=== PATIENT | female | born 1980 | race Caucasian/White ===

== ENCOUNTER 2023-06-25 10:05 | Outpatient (CLI) | payer BC, SELFPAY ==
--- NOTE | 2023-06-25 10:52 | ECG_ITS ---
Measurements Intervals [place] Rate: 73 P: 28 AR: 140 QRS: 30 QRSD: 93 T: 21 QT: 403 QTc: 429 Interpretive Statements SINUS RHYTHM LOW QRS VOLTAGE BORDERLINE ECG SEE SCANNED COPY FOR SIGNATURE MTDD
[2023-06-25 11:33] LABS: Alanine Aminotransferase 17 U/L (6-35); Albumin Level 4.4 g/dL (3.5-5.1); Alkaline Phosphatase 93 U/L (38-126); Anion Gap 6 mmol/L (4-12); Aspartate Amino Transferase 19 U/L (14-36); Bilirubin,Total 0.7 mg/dL (0.2-1.3); Blood Urea Nitrogen 16 mg/dL (7-17); Calcium 9.5 mg/dL (8.4-10.2); Carbon Dioxide 27 mmol/L (22-30); Chloride 105 mmol/L (98-107); Estimated Glomerular Filt Rate > 60; Glucose 91 mg/dL (65-110); Sodium 138 mmol/L (137-145)
== END 2023-06-25 10:06 | disposition home or self-care (01) ==
LOC: ANHSURGERY 10:10
PROVIDERS: PCP Nurse Practitioner Family; Visit Provider Obstetrics & Gynecology
DX: I10 Essential (primary) hypertension (principal); R10.2 Pelvic and perineal pain
CPT/HCPCS: 36415; 80053; 86850; 86900; 86901; 93005

== ENCOUNTER 2023-06-27 01:40 | Day surgery (SDC) | payer BC, SELFPAY ==
--- NOTE | 2023-06-13 16:28 | PC.NURSE ---
Report to the Outpatient Waiting Room, entrance under the green pavilion located off [facility], at time 0830 on date 06/27/23. Planned Procedure Time: 1030. Time changes happen often and if your time is changed the preop area will call you the afternoon before. - You and your visitor will be asked to self-screen and do not enter if you have any COVID symptoms. - A mask is optional within the hospital at this time. Patients may have clear liquids (water, carbonated beverages, clear teas, apple juice) until 3 hours prior to surgery with a maximum of 20 ounces. 0730 - No food from midnight until time of surgery - Infants may have breast milk until 4 hours before surgery, formula 6 hours prior to surgery. - Children will be allowed to drink immediately following surgery. If applicable, please bring a bottle or sippy cup to assist with drinking. Juice, water, soda, and popsicles are readily available. For infants on formula, please bring formula the day of surgery. Pacifiers are allowed. Take the following medications with a SIP of water the morning of surgery: FLUOXETINE, HYDROXYZINE, METOPROLOL DO NOT STOP ANY OF YOUR OTHER PRESCRIPTION MEDICATIONS PRIOR TO SURGERY ?EXCEPT THE FOLLOWING Medications to discontinue per physician NONE Date to take last dose Please no make-up, nail [place], hairspray, perfume, deodorant, or body powder the day of surgery. No jewelry (including any body piercings) or valuables the day of surgery, leave them at home. Please take a shower or bath the night before, or the morning of, surgery with an antibacterial soap. Wear comfortable, loose fitting clothing. Children are encouraged to wear pajamas. - Jewelry must be removed prior to entering the operating room. Rings and piercings that are not removed may be cut off. - The hospital will not accept responsibility for valuables. - Please leave all valuables, including medications, at home the day of surgery. If you are going home after surgery, a licensed log truck driver must drive you home. - NO public transportation without another adult if you receive anesthesia. - We recommend that an adult stay with you for 24 hours following discharge. - We also recommend that you do not drive, make important decision, drink alcoholic beverages, or take any drugs that were not prescribed by your health care provider for at least 24 hours after your discharge time. For Pediatric surgeries, we recommend two adults accompany the child home. Follow any additional instructions given to you from your surgeon. If you or anyone in your household have experienced Covid symptoms in the past week, please notify your surgeon or the nurse liaison at the phone number below for possible testing. Telephone instructions given to PATIENT- DARLENE VENTRUA and asked if any additional questions and then verbalized understanding. Patient advised to call surgeon office or pre surgery nurse liaison [phone] if any additional questions.
[2023-06-13 16:41] VITALS: BMI 33.0
[2023-06-27] VITALS (12 sets, daily range): BP systolic 95–139; BP diastolic 50–91; PULSE 79–114; RESP 10–18; TEMP 36.2–36.7; O2SAT 92–100
[2023-06-27] MEDS: ACETAMINOPHEN 500 MG TABLET 1000 MG PO (07:19)
--- NOTE | 2023-06-27 07:48 | WPDANESEPPF ---
Anes - Initial Pre Proc Eval Procedure: Operation Date: 06/27/23 09:00 Proposed Procedures p Total Laparoscopic Hysterectomy with Bilateral Salpingectomy - Ana Alvarez MD Date/Time: 06/27/23 07:48 Surgeon: Ana Alvarez MD Pre Op Diagnosis: pelvic pain Patient Data Age: 43 Gender: F Height: 1.65 m Weight: 89.6 kg Last Vital Signs Temp 36.5 C 06/27/23 07:27 Pulse 79 06/27/23 07:27 Resp 16 06/27/23 07:27 BP 127/84 06/27/23 07:27 Pulse Ox 100 06/27/23 07:27 O2 Del Method Room Air 06/27/23 07:27 Allergies Allergy/AdvReac Type Severity Reaction Status Date / Time latex Allergy Hives Verified 06/27/23 07:15 tramadol AdvReac Nausea and Verified 06/27/23 07:15 Vomiting Home Medications Medication Instructions Recorded Confirmed Type fluoxetine 20 mg capsule 20 mg PO DAILY 06/13/23 06/27/23 History hydroxyzine HCl 50 mg tablet 50 mg PO TID PRN Anxiety 06/13/23 06/27/23 History losartan 100 mg tablet 100 mg PO HS 06/13/23 06/27/23 History metoprolol succinate 25 mg 12.5 mg PO DAILY 06/13/23 06/27/23 History tablet,extended release 24 hr Patient hx anesthesia problems: none Family hx anesthesia problems: none Results Review: All pre-operative results and documents have been reviewed as part of the pre-operative evaluation. [facility] Past Medical History Medical History (Updated 06/27/23 @ 07:49 by Iain Barrow MD) HTN (hypertension) Obesity SLE (systemic lupus erythematosus) Surgical History Surgical History (Updated 06/27/23 @ 07:52 by Iain Barrow MD) H/O cervical spine surgery History of section Hx of tonsillectomy Social History Social History Smoking packs per day: 0.5 Smoking cigarettes per day: 10.0 Years smoked: 24 Smoking pack-years: 12.00 Smoking status: Current every day smoker Tobacco type: cigarettes Alcohol use details: once every 3 months Substance use: current Substance use type: marijuana Other substance usage details: daily Spiritual care concerns: No Anes - Eval Final PreProcedure Day of Procedure 06/27/23 07:48 Patient weight: obese Heart: regular rate and rhythm Lungs: clear to auscultation Airway: Mallampati scale class II Neurological: alert and oriented Last oral intake: >/= 8 hours ASA classification: III Emergent: no Anesthetic plan: proceed Anesthesia type and monitoring: general ETT and standard monitoring Results Review: All pre-operative results and documents have been reviewed as part of the pre-operative evaluation. Informed Consent: The patient's anesthetic plan and its attendant risks and benefits were discussed with the patient/family/POA. Questions were solicited and answers provided to the satisfaction of the patient/family/POA.
[2023-06-27] MEDS: LACTATED RINGERS 1,000 ML 30 ML IV CONT ×2 (07:51→12:15)
[2023-06-27] MEDS: SCOPOLAMINE 1 MG PATCH 1 PATCH TRANSDERM (07:55)
--- NOTE | 2023-06-27 08:23 | WPDHPUPDATE1 ---
History and Physical Update Update Date/Time: 06/27/23 08:23 History and Physical has been reviewed, including an updated exam of the patient. There are NO changes in the patient's condition. Risks, benefits, and alternatives have been discussed and questions answered. Patient agrees to proceed with procedure.
[2023-06-27] MEDS: KETOROLAC 15 MG/ML VIAL (*BKC) IV PUSH (08:37)
[2023-06-27] MEDS: ceFAZolin SODIUM 1 GM VIAL 3 GM IRRIGATION (08:41)
[2023-06-27] MEDS: ceFAZolin 2 GM/D5W 50 ML 2 GM/50 ML BAG IVPB (08:41)
--- NOTE | 2023-06-27 10:58 | SUR.OPER ---
methylene blue injected IV per anesthesia at approx. 1103
--- NOTE | 2023-06-27 12:16 | SUR.OPER ---
new mustafa cath reinserted after cystoscopy procedure
[2023-06-27] MEDS: fentaNYL CITRATE INJ (*CRX) 100 MCG/2 ML VIAL 25 MCG IV PUSH ×8 (12:34→13:08)
--- NOTE | 2023-06-27 12:36 | W.PM.PROC2 ---
Procedure Note - Detailed Date of Procedure 06/27/23 Pre-op Diagnosis pelvic pain Post-op Diagnosis Same Procedure Performed Total laparoscopic hysterectomy , bilateral salpingectomy, adhesiolysis-2 hours Surgeon Ana Alvarez MD Anesthesia General Indications pelvic pain Findings Uterus Fundus was imbedded in the anterior abdominal wall 1 cm. normal-appearing ovaries and fallopian tubes. Description of Procedure This patient was taken to the operating room. She was prepped and draped in the dorsal lithotomy position after induction of general anesthesia. The uterine manipulator and Pete cup were placed. This was done with a speculum and tenaculum. The speculum was placed. The cervix was grasped with a tenaculum. The stay sutures were placed at 3 and 9:00 a.m.. The stay sutures of 0 Vicryl were brought through the appropriately sized Pete cup. The tip of the JUAN ALBERTO manipulator was placed in the intrauterine cavity. The cup was slid into place around the cervix and into the fornices. It was locked into place. The sutures were then wrapped around the handle and tied under tension. A 5 mm skin incision was made in the left upper quadrant the abdomen. A 5 mm trocar was inserted into the intrauterine cavity under direct visualization of the scope. Pneumoperitoneum was achieved. A left lower quadrant 11 mm incision was made with scalpel. An 11 mm trocar was inserted into the anterior abdominal cavity under direct visualization the scope. A 5 mm infraumbilical incision was made with a scalpel and a 5 mm trocar was inserted the intra-abdominal cavity under direct visualization of the scope. 2 hours of adhesiolysis was performed between the uterus, cervix and the anterior abdominal wall. This was done with sharp and blunt dissection and cautery. Bilateral ureteral lysis was performed. This was done from the pelvic brim down to the uterine artery. This was done with careful dissection using sharp and blunt dissection. The fallopian tubes were removed bilaterally. The mesosalpinx around the fallopian tubes were cauterized transected with LigaSure cautery. This was done in a bilateral fashion from the ovary to the uterine cornua. The fallopian tube was transected at the uterine cornu and amputated bilaterally. The tube was taken out the left lower quadrant trocar site. In a stepwise fashion along the lateral aspects of the uterus the round ligament and broad ligaments were cauterized transected down to the level of the uterine arteries. A bladder flap was created in the bladder was moved distally to the end of the cervix and over the Pete cup. The bilateral uterine arteries were cauterized and transected. Colpotomy was then performed. In a circumferential fashion the vagina was transected using unipolar cautery. The incision was made down on the Pete cup. when the colpotomy was completed, the uterus and cervix were taken out through the vagina. A pneumo occluder was placed in the vagina. The vaginal cuff was closed with a 0 V lock suture in a running fashion. The pelvis was irrigated with copious amounts antibiotic irrigation. The ureters were again examined and found to be intact and flowing freely under the uterine arteries into the bladder. The bladder was intact. It was examined directly. Cystotomy was closed. This was done with imbricating layers of 3-0 V lock suture. Two layers were used. The entire defect which was about 2 cm in length was surrounded by imbricating suture x2. Cystoscopy was performed after administration of methylene blue. The cystoscope was inserted. Bladder was distended with fluid. Cystotomy or repair was watertight. The ureteric meatus was observed bilaterally. Blue fluid was seen to egress bilaterally. The bladder was drained and the cystoscope was withdrawn. The vagina was irrigated with Betadine solution after removal of the Pneumo occluder. The patient was taken to recovery room. She was sta
[2023-06-27] MEDS: HYDROmorphone HCL INJ (*CRX) 1 MG/ML SYR 0.5 MG IV PUSH ×4 (13:30→13:45)
--- NOTE | 2023-06-27 14:21 | ADMGEN ---
1415-This patient, Olive Gusman, was admitted to OB 2nd Floor Room 289-00. Patient/family oriented to hospital policies and general routines including ID bracelet, bed and alarms, visiting hours, pain management, procedures, bathroom and other care routines, personal items, smoking policy, room service/diet, and visiting hours. Information on how to activate the Rapid Response Team has been discussed. Patient/Family are encouraged to report perceived risks to care and to ask questions if they do not understand what they are told or what they should do.
[2023-06-27] MEDS: DEXTROSE 5%/0.45% SOD CHL 1,000 ML 125 ML IV CONT ×2 (14:34→22:24)
[2023-06-27] MEDS: KETOROLAC 30 MG/ML VIAL (*BKC) IV PUSH ×2 (14:46→20:25)
[2023-06-27] MEDS: SIMETHICONE 80 MG TAB.CHEW PO (15:28)
[2023-06-27] MEDS: HYDROcodone/acetaminophen (*CRX) 10-325 MG TABLET 1 TAB PO ×2 (15:28→18:09)
[2023-06-27] MEDS: ONDANSETRON INJ 4 MG/2 ML VIAL IV PUSH (18:40)
[2023-06-27] MEDS: hydrOXYzine HCL 25 MG TABLET 50 MG PO (21:15)
[2023-06-27] MEDS: LOSARTAN POTASSIUM 100 MG TABLET PO (21:15)
[2023-06-28] MEDS: ONDANSETRON INJ 4 MG/2 ML VIAL IV PUSH (00:32)
[2023-06-28] MEDS: HYDROcodone/acetaminophen (*CRX) 10-325 MG TABLET 1 TAB PO (00:43)
[2023-06-28 00:46] VITALS: BP 139/98; PULSE 109; RESP 20; TEMP 36.7; O2SAT 99
[2023-06-28] MEDS: KETOROLAC 30 MG/ML VIAL (*BKC) IV PUSH (03:20)
[2023-06-28 04:12] VITALS: BP 137/86; PULSE 106; RESP 20; TEMP 36.6; O2SAT 99
[2023-06-28 07:18] VITALS: PULSE 75
[2023-06-28] MEDS: FLUoxetine HCL 20 MG CAPSULE PO (07:18)
[2023-06-28] MEDS: SIMETHICONE 80 MG TAB.CHEW PO (07:18)
[2023-06-28] MEDS: METOPROLOL SUCCINATE EXT REL 12.5 MG TABCR PO (07:18)
[2023-06-28 07:22] VITALS: BP 126/76; PULSE 74; RESP 18; TEMP 36.6; O2SAT 97
[2023-06-28] MEDS: HYDROcodone/acetaminophen (*CRX) 5-325 MG TABLET 1 TAB PO (07:35)
--- NOTE | 2023-06-28 07:40 | PM.GYNPNOP ---
PUNCH FINISHER - A/P Postoperative Procedures: Procedures Operation Date: 06/27/23 09:00 Actual Procedure Side Surgeon p Total Laparoscopic Hysterectomy with Bilateral Salpingectomy and extensive adhesiolysis , cystoscopy with bladder repair Bilateral Ana Alvarez MD Postoperative day: 1 Postoperative status: doing well Postoperative plan: see orders Time Spent With Patient Time: Total time spent is greater than 50% in coordination of care (as documented) at patient's floor/unit and/or counseling patient: Time with patient: less than 15 minutes PUNCH FINISHER- PN:Subj Post-Op Subjective Date/time seen: 06/28/23 07:40 Subjective: patient reports feeling better, patient has no complaints and pain is well controlled Exam Const: General: healthy appearing, comfortable and no acute distress Resp: Auscultation: clear to auscultation bilaterally, no rales, no rhonchi and no wheezes Cardio: Rate: regular rate Heart sounds: no click, no murmurs and no rubs GI: Inspection: non-distended Auscultation: normal bowel sounds Extrem: General: normal to inspection, no pedal edema and no calf tenderness PUNCH FINISHER - PN: Obj Data Vital Signs Vital Signs: Vital Signs - 24 hr 06/27/23 12:15 06/27/23 12:30 06/27/23 12:45 Temperature 97.1 F L Pulse Rate 114 H 92 97 Respiratory Rate 16 18 10 L Blood Pressure 133/88 113/70 111/66 Pulse Oximetry 98 98 92 Oxygen Delivery Simple Face Mask Room Air Room Air Oxygen Flow Rate 8 06/27/23 13:00 06/27/23 13:15 06/27/23 13:30 Temperature Pulse Rate 98 99 95 Respiratory Rate 11 L 12 10 L Blood Pressure 103/70 107/61 102/63 Pulse Oximetry 92 93 96 Oxygen Delivery Room Air Room Air Room Air Oxygen Flow Rate 06/27/23 13:45 06/27/23 14:00 06/27/23 14:20 Temperature 97.7 F Pulse Rate 98 98 97 Respiratory Rate 12 14 16 Blood Pressure 101/66 95/50 L 135/76 Pulse Oximetry 93 93 95 Oxygen Delivery Room Air Room Air Oxygen Flow Rate 06/27/23 14:30 06/27/23 18:43 06/28/23 00:46 Temperature 98.1 F 98.1 F Pulse Rate 97 107 H 109 H Respiratory Rate 16 18 20 Blood Pressure 139/91 H 139/98 H Pulse Oximetry 95 99 99 Oxygen Delivery Room Air Oxygen Flow Rate 06/28/23 04:12 06/28/23 07:18 06/28/23 07:22 Temperature 97.8 F 98 F Pulse Rate 106 H 75 74 Respiratory Rate 20 18 Blood Pressure 137/86 126/76 Pulse Oximetry 99 97 Oxygen Delivery Oxygen Flow Rate 06/28/23 07:22 Temperature Pulse Rate Respiratory Rate Blood Pressure Pulse Oximetry Oxygen Delivery Room Air Oxygen Flow Rate Intake/Output Intake/Output: Intake & Output 06/25/23 06/26/23 06/27/23 06/28/23 23:59 23:59 23:59 23:59 Intake Total 2079.2 800 Output Total 830 1500 Balance 1249.2 -700 Meds/Results Medications: Active Medications Generic Name Dose Route Start Last Admin Trade Name Freq PRN Reason Stop Dose Admin Hydrocodone Bitart/Acetaminophen 1 tab 06/27/23 14:08 06/28/23 07:35 Hydrocodone/Acetaminophen (*Crx) 5-325 Mg Tablet PO 1 tab Q3H PRN Administration Pain Rated 5 or Less Hydrocodone Bitart/Acetaminophen 1 tab 06/27/23 14:08 06/28/23 00:43 Hydrocodone/Acetaminophen (*Crx) 10-325 Mg Tablet PO 1 tab Q3H PRN Administration Pain Rated 6 or Greater Fluoxetine HCl 20 mg 06/28/23 09:00 06/28/23 07:18 Fluoxetine Hcl 20 Mg Capsule PO 20 mg DAILY GILDA Administration Hydroxyzine HCl 50 mg 06/27/23 14:08 06/27/23 21:15 Hydroxyzine Hcl 25 Mg Tablet PO 50 mg TID PRN Administration Anxiety Dextrose/Sodium Chloride 1,000 mls @ 125 mls/hr 06/27/23 14:08 06/27/23 22:24 Dextrose 5% Sodium Chloride 0.45% IV CONT 125 mls/hr .Q8H GLIDA Administration Ibuprofen 600 mg 06/27/23 14:08 Ibuprofen 600 Mg Tablet PO Q6H PRN Cramping Ketorolac Tromethamine 30 mg 06/27/23 14:08 06/28/23 03:20 Ketorolac 30 Mg/Ml Vial (*Bkc) IV PUSH 07/02/23 14:07 30 mg Q6H PRN Administration Pain R
--- NOTE | 2023-06-28 08:02 | WPDANESPN ---
Anes - Prog Note Post-Op Date/Time: 06/28/23 08:02 Cardiovascular status: normal Respiratory status: normal Airway patency: baseline Mental status: baseline Post-Op hydration status: normal Vital Signs: Last Vital Signs Temp 36.6 C 06/28/23 07:22 Pulse 74 06/28/23 07:22 Resp 18 06/28/23 07:22 BP 126/76 06/28/23 07:22 Pulse Ox 97 06/28/23 07:22 O2 Del Method Room Air 06/28/23 07:22 O2 Flow Rate 8 06/27/23 12:15 Pain Score (VAS): 04/28 I/O: Intake & Output 06/27/23 06/28/23 06/28/23 23:59 07:59 15:59 Intake Total 979.2 800 Output Total 2800 Balance 979.2 -2000 Post-procedural complaints: nausea Patient Feedback: Patient satisfied with anesthetic care.
== END 2023-06-28 08:42 | disposition home or self-care (01) ==
LOC: ANHSURGERY 07:51 → ANHOB2 14:10
PROVIDERS: PCP Nurse Practitioner Family; Visit Provider Obstetrics & Gynecology
PROC: 0UT9FZZ Resection of Uterus, Via Natural or Artificial Opening With Percutaneous Endoscopic Assistance (ICD-10-PCS; CPT 58571; principal; 2023-06-27 09:00)
DX: N73.6 Female pelvic peritoneal adhesions (postinfective) (principal); N72 Inflammatory disease of cervix uteri; N87.9 Dysplasia of cervix uteri, unspecified; N80.03 Adenomyosis of the uterus; D25.1 Intramural leiomyoma of uterus; D25.2 Subserosal leiomyoma of uterus; N83.8 Other noninflammatory disorders of ovary, fallopian tube and broad ligament; I10 Essential (primary) hypertension; M32.9 Systemic lupus erythematosus, unspecified; E66.9 Obesity, unspecified; Z68.32 Body mass index [BMI] 32.0-32.9, adult; F17.210 Nicotine dependence, cigarettes, uncomplicated; F12.90 Cannabis use, unspecified, uncomplicated
CPT/HCPCS: 58571; 88307; 99199; A9270; J0690; J1100; J1170; J1885; J2250; J2405; J2704; J3010; J7030; J7120; Q9968

== ENCOUNTER 2023-06-29 04:28 | Emergency (ER) | payer BC, SELFPAY ==
--- NOTE | ~2023-06-29 | CT_ITS ---
EXAMINATION: CT abdomen pelvis w con DATE: 06/29/2023 05:54 INDICATION: Postoperative pelvic pain. TECHNIQUE: Computed tomography (CT) of the abdomen and pelvis was performed with 100 mL Omnipaque 350 intravenous contrast. Automated exposure control and iterative reconstruction technique were employe d. The dose-length product was 1141.01 mGy-cm. COMPARISON: None. FINDINGS: The visualized portions of the lung bases demonstrate mild atelectasis. There is a trace le ft pleural effusion. The heart size is normal. No pericardial effusion. There is a 5 mm cyst in the l iver. The gallbladder, spleen, pancreas, and adrenal glands are normal. There are cysts in the kidney s measuring up to 7 mm in the right. There is a Ibarra catheter in expected position. There are no dil ated loops of bowel. The appendix is normal. There are no pathologically enlarged lymph nodes. There is trace pelvic ascites. There is fat stranding in the pelvis, consistent with inflammation versus ed leeann. There is widespread gas in the body wall. There is subcutaneous fat stranding in left abdomen, c onsistent with inflammation versus edema. There is moderate thoracic spondylosis and mild lumbar spon dylosis. IMPRESSION: 1. Widespread gas in the body wall, consistent with recent surgery. 2. Fat stranding in the pelvis and the left abdominal subcutaneous fat, consistent with inflammation versus edema. Reviewed, dictated and finalized at location A. IMPRESSION: 1. Widespread gas in the body wall, consistent with recent surgery. 2. Fat stranding in the pelvis and the left abdominal subcutaneous fat, consist ent with inflammation versus edema.
[2023-06-29 04:32] VITALS: BP 167/92; PULSE 91; RESP 20; TEMP 36.6; O2SAT 100
--- NOTE | 2023-06-29 04:40 | PC.NURSE ---
mustafa catheter noted to have mechanical obstruction, mustafa was repositioned and urine became patent w/ outflow 600 MLS collected in mustafa cath
--- NOTE | 2023-06-29 04:50 | ED.GENADULT ---
HPI - General Adult General Chief complaint: Urogenital-Female Stated complaint: urinary retention Time Seen by Provider: 06/29/23 04:48 History of Present Illness HPI narrative: This is a 43-year-old female who is POD 2 from a total laparoscopic hysterectomy with bilateral salpingectomy and adhesiolysis. Patient noticed that her Ibarra stopped draining last night. Since then she has been having worsening lower abdominal pain and fullness. No fever chills nausea vomiting or diarrhea. Patient has been taking oxycodone for pain. Related Data Home Medications Medication Instructions Recorded Confirmed fluoxetine 20 mg capsule 20 mg PO DAILY 06/13/23 06/27/23 hydroxyzine HCl 50 mg tablet 50 mg PO TID PRN Anxiety 06/13/23 06/27/23 losartan 100 mg tablet 100 mg PO HS 06/13/23 06/27/23 metoprolol succinate 25 mg 12.5 mg PO DAILY 06/13/23 06/27/23 tablet,extended release 24 hr Allergies Allergy/AdvReac Type Severity Reaction Status Date / Time latex Allergy Hives Verified 06/29/23 04:37 tramadol AdvReac Nausea and Verified 06/29/23 04:37 Vomiting PMFSH Past Medical History Medical History (Updated 06/29/23 @ 06:35 by Kvng Hanley MD) HTN (hypertension) Obesity SLE (systemic lupus erythematosus) Surgical History Surgical History (Updated 06/27/23 @ 07:52 by Iain Barrow MD) H/O cervical spine surgery History of section Hx of tonsillectomy Social History Social History Smoking packs per day: 0.5 Smoking cigarettes per day: 10.0 Years smoked: 24 Smoking pack-years: 12.00 Smoking status: Current every day smoker Tobacco type: cigarettes Alcohol use details: once every 3 months Substance use: current Substance use type: marijuana Other substance usage details: daily Spiritual care concerns: No Exam Narrative: APPEARANCE: No apparent distress. Head: atraumatic. EYES: EOMI, NOSE: Atraumatic NECK: Trachea midline RESPIRATORY: No increased rate of breathing CARDIOVASCULAR: RRR, ABDOMINAL: abdomen is diffusely tender without significant guarding or rebound. multiple surgical incisions sites with some mild bruising but no cellulitic changes MUSCULOSKELETAl: No obvious deformities NEURO: Alert. Moving 4/4 extremities SKIN:: Warm, dry. Normal color PSYCHIATRIC: Normal affect Course Vital Signs Vital signs: Vital Signs Temperature 97.8 F 06/29/23 04:32 Pulse Rate 91 06/29/23 04:32 Respiratory Rate 20 06/29/23 04:32 Blood Pressure 167/92 H 06/29/23 04:32 Pulse Oximetry 100 06/29/23 04:32 Oxygen Delivery Room Air 06/29/23 04:32 Temperature 97.8 F 06/29/23 04:32 Pulse Rate 91 06/29/23 04:32 Respiratory Rate 20 06/29/23 04:32 Blood Pressure 167/92 H 06/29/23 04:32 Pulse Oximetry 100 06/29/23 04:32 Oxygen Delivery Room Air 06/29/23 04:32 Medical Decision Making MDM Narrative Medical decision making narrative: -Course: 43-year-old female presented pod 2 with increased abdominal pain and a Ibarra that is stop draining. On exam the patient's Ibarra had been kinked morning was on came started to drain urine stained with methylene blue. Review of the operative note shows that there was a bladder repair performed during the surgery. The case was discussed with Dr Alvarez. The patient's urinary retention may have damaged her bladder repair and a CT abdomen pelvis was ordered to evaluate for possible urine leak. CT showed expected surgical changes. Some trace ascites in pelvis. patient was given fluid resuscitation/pain medications and is now resting more comfortably. Patient has some tenderness to her abdomen although it is consistent with postop tenderness. I re-contacted Dr. Alvarez. I updated him on the patients condition and she will be discharged to follow-up with him outpatient. Additionally she will be given return precautions for worsening abdominal pa
[2023-06-29] MEDS: HYDROmorphone HCL INJ (*CRX) 1 MG/ML SYR IM (05:06)
[2023-06-29] MEDS: SODIUM CHLORIDE 0.9% IV 1,000 ML 999 ML IV CONT (05:13)
[2023-06-29] MEDS: KETOROLAC 15 MG/ML VIAL (*BKC) IV PUSH (05:13)
[2023-06-29 05:18] LABS: Basophils Percent Auto 0.1 % (0.2-1.2); Eosinophils Absolute Auto 0.1 K/mm3 (0-0.3); Eosinophils Percent Auto 1.7 % (0-4.4); Hemoglobin 12.1 g/dL (12.0-15.0); Immature Granulocyte Absolute 0.03 K/mm3 (0.00-0.031); Immature Granulocyte Percent A 0.4 % (0-0.5); Lymphocytes Absolute Auto 1.53 K/mm3 (0.9-3.2); Lymphocytes Percent Auto 21.1 % (18.3-44.2); Mean Corpuscular HGB Conc 32.7 g/dl (32-36); Mean Corpuscular Hemoglobin 28.9 pg (26-34); Mean Corpuscular Volume 88.5 fl (80-100); Mean Platelet Volume 9.3 fl (7.4-10.4); Monocytes Absolute Auto 0.4 K/mm3 (0.1-0.6); Monocytes Percent Auto 5.1 % (2.6-8.5); Neutrophils Absolute Auto 5.2 K/mm3 (1.3-6.7); Neutrophils Percent Auto 71.6 % (45.5-73.1); Platelet Count Result 229 k/mm3 (150-375); Red Blood Count 4.18 M/mm3 (4.2-5.4); Red Cell Distribution Width 12.8 % (11.5-14.5); White Blood Count 7.3 K/mm3 (4.5-10.0)
[2023-06-29 05:20] LABS: Bacteria Urine None Seen /hpf; Non Pathogenic Casts 0-2; RBC Urine 21-50 /hpf (0-2); Squamous Epithelial Cell Urine None Seen /hpf (Few); WBC Urine 0-5 /hpf (0-3)
[2023-06-29 05:22] LABS: Alanine Aminotransferase 16 U/L (6-35); Albumin Level 3.9 g/dL (3.5-5.1); Alkaline Phosphatase 81 U/L (38-126); Anion Gap 8 mmol/L (4-12); Aspartate Amino Transferase 23 U/L (14-36); Bilirubin,Total 0.5 mg/dL (0.2-1.3); Blood Urea Nitrogen 15 mg/dL (7-17); Calcium 8.9 mg/dL (8.4-10.2); Carbon Dioxide 25 mmol/L (22-30); Chloride 107 mmol/L (98-107); Estimated CRCL calculation 99 ml/min; Estimated Glomerular Filt Rate > 60; Glucose 99 mg/dL (65-110); Potassium 3.4 mmol/L (3.4-5.0); Sodium 140 mmol/L (137-145)
[2023-06-29 05:24] LABS: Appearance Urine Clear (Clear); Bilirubin Urine Negative (Negative); Blood Urine 2+ (Negative); Glucose Urine UA Negative (Negative); Ketones Urine Negative (Negative); Leukocyte Esterase Ur Negative LEU/UL (Negative); Nitrate Urine Negative (Negative); Protein Urine 1+ mg/dL (Negative); Specific Grav Ur 1.019 (1.001-1.035); Urobilinogen Urine 0.2 mg/dL (<2.0); pH Urine 6.5 (5.0-9.0)
[2023-06-29 05:25] LABS: Add Urine Microscopic? YES
[2023-06-29 05:26] VITALS: BP 139/87; PULSE 75; RESP 15; O2SAT 96
[2023-06-29 06:51] VITALS: BP 132/74; PULSE 84; RESP 16; O2SAT 98
== END 2023-06-29 06:52 | disposition home or self-care (01) ==
PROVIDERS: Emergency Provider Emergency Medicine; PCP Nurse Practitioner Family
DX: G89.18 Other acute postprocedural pain (principal); T83.091A Other mechanical complication of indwelling urethral catheter, initial encounter; Z79.891 Long term (current) use of opiate analgesic; I10 Essential (primary) hypertension; E66.9 Obesity, unspecified; Z68.34 Body mass index [BMI] 34.0-34.9, adult; M32.9 Systemic lupus erythematosus, unspecified; F17.210 Nicotine dependence, cigarettes, uncomplicated
CPT/HCPCS: 36415; 51702; 74177; 80053; 81001; 85025; 96361; 96367; 96372; 96374; 99284; J1170; J1885; J7030; Q9967

== ENCOUNTER 2023-07-02 17:12 | Outpatient (CLI) | payer BC, SELFPAY ==
--- NOTE | ~2023-07-02 | XR_ITS ---
EXAMINATION: CYSTOGRAM DATE: 07/02/2023 17:40 INDICATION: Assess for repaired bladder injury post recent hysterectomy. TECHNIQUE: Initial habitat conservation planner radiograph of the pelvis was performed. There was retrograde administration of Omnipaque 350 mixed with saline contrast into patient's existing Ibarra catheter. Fluoroscopic francis ges of the pelvis were obtained in AP and left and right oblique projections. A post-void image was a lso performed. Fluoroscopy exposure time was 0.6 minutes. A total of 17 fluoroscopic images and 2 ove rhead radiographs were obtained. FINDINGS: Contrast fills the bladder which demonstrates a normal contour was smooth mucosal surface and without evident extraluminal contrast extravasation to suggest residual bladder leak. IMPRESSION: 1. Normal cystogram with no bladder leak. Reviewed, dictated and finalized at location A.
== END 2023-07-02 17:13 | disposition home or self-care (01) ==
LOC: ANHIMG 17:13
PROVIDERS: PCP Nurse Practitioner Family; Visit Provider Obstetrics & Gynecology
DX: Z48.89 Encounter for other specified surgical aftercare (principal)
CPT/HCPCS: 51600; 74430; Q9967

== ENCOUNTER 2023-07-21 13:19 | Emergency (ER) | payer BC, SELFPAY ==
--- NOTE | ~2023-07-21 | XR_ITS ---
EXAMINATION: XR chest 2V Exam Date/Time: 07/21/2023 14:52 CDT HISTORY: back pain, SCAPULAR REGION, into right arm Comparison: None. RESULT: Lines, tubes, and devices: ACDF hardware. Lungs and pleura: Clear. Cardiomediastinal silhouette: Unremarkable. Other: No acute osseous or upper abdominal finding. IMPRESSION: No acute cardiopulmonary process. Reviewed, dictated and finalized at location K.
[2023-07-21 13:21] VITALS: BP 142/100; PULSE 90; RESP 19; TEMP 36.4; O2SAT 100
--- NOTE | 2023-07-21 14:40 | ED.EXTPRO ---
HPI - Extremity Problem General Chief complaint: Extremity Problem,Nontraumatic Stated complaint: shoulder pain Time Seen by Provider: 07/21/23 14:07 History of Present Illness HPI Narrative: 43-year-old female present to the emergency department for evaluation of upper back pain that radiates into her right shoulder. Patient states pain started few days ago. Patient does have prior history of herniated disc and states this feels similar. Patient denies any specific incident of fall or injury. Related Data Home Medications Medication Instructions Recorded Confirmed fluoxetine 20 mg capsule 20 mg PO DAILY 06/13/23 06/27/23 hydroxyzine HCl 50 mg tablet 50 mg PO TID PRN Anxiety 06/13/23 06/27/23 losartan 100 mg tablet 100 mg PO HS 06/13/23 06/27/23 metoprolol succinate 25 mg 12.5 mg PO DAILY 06/13/23 06/27/23 tablet,extended release 24 hr Allergies Allergy/AdvReac Type Severity Reaction Status Date / Time latex Allergy Hives Verified 07/21/23 14:21 tramadol AdvReac Nausea and Verified 07/21/23 14:21 Vomiting Review of Systems Review of Systems: All systems reviewed & are unremarkable except as noted in HPI and below PMFSH Past Medical History Medical History (Updated 07/21/23 @ 16:09 by Filiberto Segovia MD) HTN (hypertension) Obesity SLE (systemic lupus erythematosus) Surgical History Surgical History (Updated 06/27/23 @ 07:52 by Iain Barrow MD) H/O cervical spine surgery History of section Hx of tonsillectomy Social History Social History Smoking packs per day: 0.5 Smoking cigarettes per day: 10.0 Years smoked: 24 Smoking pack-years: 12.00 Smoking status: Current every day smoker Tobacco type: cigarettes Alcohol use details: once every 3 months Substance use: current Substance use type: marijuana Other substance usage details: daily Spiritual care concerns: No Exam Narrative: APPEARANCE: Well appearing, no pain, no distress, well-nourished. HEAD: normocephalic, atraumatic. EYES: PERRLA/EOMI, conjunctivae clear. NOSE: Normal no drainage EARS:TMS clear with good light reflex. THROAT: Pharynx clear, no exudate. NECK: Supple. No adenopathy, no masses. RESPIRATORY: Airway patent, respirations nonlabored. Clear to auscultation bilaterally, no rales, rhonchi, wheezing. CARDIOVASCULAR: Regular rate and rhythm without murmurs rubs or gallops. ABDOMINAL: Soft, nontender, nondistended, normal bowel sounds MUSCULOSKELETAL: Reproducible right scapular tenderness NEURO: Alert. Cranial nerves II through XII intact. Grossly intact Course Vital Signs Vital signs: Vital Signs Temperature 97.6 F 07/21/23 13:21 Pulse Rate 90 07/21/23 13:21 Respiratory Rate 19 07/21/23 13:21 Blood Pressure 142/100 H 07/21/23 13:21 Pulse Oximetry 100 07/21/23 13:21 Oxygen Delivery Room Air 07/21/23 13:21 Temperature 97.6 F 07/21/23 13:21 Pulse Rate 90 07/21/23 13:21 Respiratory Rate 19 07/21/23 13:21 Blood Pressure 142/100 H 07/21/23 13:21 Pulse Oximetry 100 07/21/23 13:21 Oxygen Delivery Room Air 07/21/23 13:21 MDM - Extremity (Nontraumatic) MDM Narrative Medical decision making narrative: 43-year-old female presenting ED for evaluation right scapular muscular pain. X-ray was negative for fracture or lung abnormality. Patient did feel improved with medication for pain control. Differential Diagnosis Differential diagnosis: Likely other (Muscular injury, scapular injury, pneumonia, pneumothorax, muscular strain) Imaging Data Radiologist's impression: Impressions Chest X-Ray 07/21/23 15:13 IMPRESSION: No acute cardiopulmonary process. Discharge Plan Discharge Clinical Impression: Pain of right scapula Patient Disposition: Home, Self-Care Condition: Stable Instructions: Antibiotic Form, Musculoskeletal Pain (ED) Additional Instr
[2023-07-21] MEDS: KETOROLAC 30 MG/ML VIAL (*BKC) IM (14:51)
[2023-07-21] MEDS: HYDROcodone/acetaminophen (*CRX) 10-325 MG TABLET 1 TAB PO (14:51)
[2023-07-21] MEDS: CYCLOBENZAPRINE HCL 10 MG TABLET PO (14:51)
== END 2023-07-21 16:25 | disposition home or self-care (01) ==
PROVIDERS: Emergency Provider Emergency Medicine; PCP Nurse Practitioner Family
DX: M25.511 Pain in right shoulder (principal); I10 Essential (primary) hypertension; M32.9 Systemic lupus erythematosus, unspecified; E66.9 Obesity, unspecified; Z68.34 Body mass index [BMI] 34.0-34.9, adult; F17.210 Nicotine dependence, cigarettes, uncomplicated
CPT/HCPCS: 71046; 96372; 99283; A9270; J1885